=== PATIENT | female | born 1950 | race Caucasian/White ===

== ENCOUNTER 2019-12-26 08:40 | Outpatient (CLI) | payer BC, MEDICARE ==
[2019-12-26 17:18] LABS: BASOPHILS % (AUTO) 0.3 %; EOSINOPHILS # (AUTO) 0.3 10^3/uL (0.0-0.7); EOSINOPHILS % (AUTO) 4.3 %; HGB - HEMOGLOBIN 14.2 g/dL (12.0-16.0); LYMPHOCYTES # (AUTO) 2.7 10^3/uL (1.5-3.5); LYMPHOCYTES % (AUTO) 39.9 %; MEAN CORPUSCULAR HEMOGLOBIN 27.3 pg (27.0-31.0); MEAN CORPUSCULAR HGB CONC 31.3 g/dL (32.0-36.0); MEAN CORPUSCULAR VOLUME 87.1 fL (81.0-99.0); MEAN PLATELET VOLUME 10.1 fL (7.9-10.8); MONOCYTES # (AUTO) 0.4 10^3/uL (0.0-1.0); MONOCYTES % (AUTO) 5.4 %; NEUTROPHILS # (AUTO) 3.4 10^3/uL (1.5-6.6); PLT - PLATELET COUNT 293 10^3/uL (130-450); RED CELL DISTRIBUTION WIDTH 13.7 % (12.0-15.0); WHITE BLOOD COUNT 6.7 x10^3/uL (4.8-10.8)
[2019-12-26 18:03] LABS: HB2 TOTAL 14.8 g/dL; HEMOGLOBIN A1C 0.62 g/dL
[2019-12-26 18:04] LABS: ALBUMIN 4.3 g/dL (3.2-5.5); ALBUMIN/GLOBULIN RATIO 1.5 (1.0-2.2); ALKALINE PHOSPHATASE 66 IU/L (42-121); ALT ALANINE AMINOTRANSFERASE 11 IU/L (10-60); AST ASPARTATE AMINOTRANSFERASE 16 IU/L (10-42); BUN - BLOOD UREA NITROGEN 18 mg/dL (6-20); CALCIUM 9.3 mg/dL (8.5-10.3); CARBON DIOXIDE - CO2 29 mmol/L (21-32); CHLORIDE 101 mmol/L (101-111); CHOL/HDL RATIO 4.1 (<4.4); CHOLESTEROL 223 mg/dL; CREATININE 0.7 mg/dL (0.4-1.0); GFR - MDRD 83 (>89); GLUCOSE 101 mg/dL (70-100); HDL CHOLESTEROL 54 mg/dL; LDL CHOLESTEROL,CALCULATED 155 mg/dL; LDL/HDL RATIO 2.9 (<4.4); SODIUM 140 mmol/L (135-145); TOTAL PROTEIN 7.1 g/dL (6.7-8.2); VLDL CHOLESTEROL 14 mg/dL
[2019-12-27 14:25] LABS: HEPATITIS C ANTIBODY NON-REACTIVE (NON-REACTIVE)
== END 2019-12-26 08:41 | disposition home or self-care (01) ==
LOC: LAB.S 08:40
PROVIDERS: ATTEND Nurse Practitioner Family
DX: I10 Essential (primary) hypertension (principal); Z11.59 Encounter for screening for other viral diseases; Z13.1 Encounter for screening for diabetes mellitus
CPT/HCPCS: 36415; 80053; 80061; 83036; 83721; 85025; 86803

== ENCOUNTER 2021-04-03 08:13 | Outpatient (CLI) | payer MEDICARE ==
--- NOTE | 2021-04-03 17:41 | DEXA Report ---
PROCEDURE: Dexa Spine and/or Hip INDICATIONS: POSTMENOPAUSAL TECHNIQUE: Dual energy x-ray absorptiometry (DXA) was performed on a [employer]. Regions measur ed are the AP Spine, femoral neck, and if needed forearm. COMPARISON: None. FINDINGS: Lumbar Spine: Bone Mineral Density 1.315 g/cm/cm,T score 1.1, normal Left Hip: Bone Mineral Density 1.049 g/cm/cm,T score 0.3, normal Left Femoral Neck: Bone Mineral Density 0.882 g/cm/cm, T score -1.1, osteopenia (T score greater or equal to -1.0: NORMAL) (T score from -1.1 to -2.4: OSTEOPENIA) (T score less than or equal to -2.5 to: OSTEOPOROSIS) Impression: Osteopenia. Patients with diagnosis of osteoporosis or osteopenia should have regular bone mineral density assess ment. For those eligible for Medicare, routine testing is allowed once every 2 years. Testing frequ ency can be increased for patients who have rapidly progressing disease or for those who are receivin g medical therapy to restore bone mass. Reviewed by: Martha Calloway MD, PhD on 04/03/2021 5:40 PM PDT Approved by: Martha Calloway MD, PhD on 04/03/2021 5:40 PM PDT Station ID: [id number]
== END 2021-04-03 08:14 | disposition home or self-care (01) ==
LOC: DI 08:13
PROVIDERS: ATTEND Nurse Practitioner Family
DX: M85.89 Other specified disorders of bone density and structure, multiple sites (principal); Z78.0 Asymptomatic menopausal state

== ENCOUNTER 2021-11-20 06:43 | Outpatient (CLI) | payer MEDICARE ==
--- NOTE | 2021-11-20 08:59 | Ultrasound Report ---
PROCEDURE: Abdomen Complete INDICATIONS: ABD MASS TECHNIQUE: Real-time scanning was performed of the abdominal and retroperitoneal organs, with image documentatio n. COMPARISON: None. FINDINGS: Liver: Liver is normal in size and homogeneous in echotexture. Liver is diffusely echogenic Gallbladder: : There is sonographically normal. No gallstones. Gallbladder wall measures 1.3 mm. No p ericholecystic fluid. No sonographic Arguello's sign. Biliary ducts: Intrahepatic bile ducts are non-dilated. Extrahepatic bile duct caliber measures 6.0 mm. Normal is 6-7 mm or less in diameter, or 10 mm or less post-cholecystectomy. Pancreas: Visualized portions of the pancreas are sonographically normal. Spleen: Spleen is normal in size and homogeneous in echotexture. Kidneys: Kidneys are normal in size and echotexture. Right kidney measures 9.5 cm long; left kidney measures 11.8 cm long. No hydronephrosis or nephrolithiasis. No solid masses. Aorta: Visualized aorta is normal in caliber at less than 3 cm. Iliacs: Proximal common iliac arteries are normal in caliber at less than 2.5 cm. IVC: Intrahepatic inferior vena cava is patent. Miscellaneous: No free abdominal fluid. There is a fat-containing supraumbilical ventral midline her rivka measures approximately 2.4 x 2.0 cm. IMPRESSION: 1. Echogenic liver. Finding typically represents fatty infiltration, however finding is nonspecific a nd other etiologies including hepatic cirrhosis can produce a similar appearance. Recommend correlati on with clinical and laboratory data. 2. Mild right renal atrophy. 3. Small fat-containing supraumbilical ventral hernia. Reviewed by: Martha Calloway MD, PhD on 11/20/2021 8:58 AM PST Approved by: Martha Calloway MD, PhD on 11/20/2021 8:58 AM PST Station ID: [id number]
== END 2021-11-20 06:44 | disposition home or self-care (01) ==
LOC: DI 06:43
PROVIDERS: ATTEND Nurse Practitioner Family
DX: R19.00 Intra-abdominal and pelvic swelling, mass and lump, unspecified site (principal); R93.2 Abnormal findings on diagnostic imaging of liver and biliary tract; N26.1 Atrophy of kidney (terminal); K43.9 Ventral hernia without obstruction or gangrene

== ENCOUNTER 2022-03-10 08:58 | Outpatient (CLI) | payer MEDICARE ==
--- NOTE | 2022-03-18 16:43 | Mammography Report ---
BILATERAL DIGITAL SCREENING MAMMOGRAM 3D/2D: 03/10/2022 CLINICAL: Routine screening. No prior exams were available for comparison. There are scattered fibroglandular elements in both br easts. No significant masses, calcifications, or other findings are seen in either breast. IMPRESSION: NEGATIVE There is no mammographic evidence of malignancy. A 1 year screening mammogram is recommended. This exam was interpreted at Station ID: [id number]. NOTE: For mammograms, a report in lay terms will be sent to the patient. Approximately 15% of breast malignancies will not be visualized mammographically. In the management of a palpable breast mass, a negative mammogram must not discourage biopsy of a clinically suspicious lesion. Electronically Signed By: Kurtis posada/coby:03/18/2022 08:43:33 ACR BI-RADS Category 1: Negative 3341F PARENCHYMAL PATTERN: (A) - The breast(s) demonstrate(s) scattered fibroglandular densities. BI-RADS CATEGORY: (1) - 1 RECOMMENDATION: (ANNUAL) - Recommend routine annual screening mammography. [id number] 1 year screening LATERALITY: (B)
== END 2022-03-10 08:59 | disposition home or self-care (01) ==
LOC: DI.S 08:58
PROVIDERS: ATTEND Nurse Practitioner Family
DX: Z12.31 Encounter for screening mammogram for malignant neoplasm of breast (principal)

== ENCOUNTER 2022-06-16 12:30 | Outpatient (CLI) | payer MEDICARE ==
--- NOTE | 2022-06-16 16:02 | XRAY Report ---
PROCEDURE: Hip w/Pelvis 2-3V RT INDICATIONS: PAIN IN RIGHT HIP TECHNIQUE: AP pelvis with lateral view(s) of the right hip(s). COMPARISON: None. FINDINGS: Bones: No fractures or dislocations. Pelvic ring appears intact. No suspicious bony lesions. Mode rate bilateral degenerative hip joint space narrowing, right greater than left. Small paratracheal or osteophytes are present. No erosions. Soft tissues: The visualized bowel gas pattern is normal. Suspected calcific tendinitis is noted on the left. IMPRESSION: Bilateral hip osteoarthritis, right greater than left. Reviewed by: Lynnette Valiente MD on 06/16/2022 4:00 PM PDT Approved by: Lynnette Valiente MD on 06/16/2022 4:00 PM PDT Station ID: [id number]
== END 2022-06-16 12:31 | disposition home or self-care (01) ==
LOC: DI.S 12:30
PROVIDERS: ATTEND Nurse Practitioner Family
DX: M16.0 Bilateral primary osteoarthritis of hip (principal)

== ENCOUNTER 2023-08-07 19:04 | Emergency (ER) | payer MEDICARE ==
[2023-08-07 19:25] VITALS: BP 142/71; O2SAT 98
--- OUTSIDE RECORDS SUMMARY | 2023-08-07 19:30 | EXTERNAL MEDICAL SUMMARY RPT | Continuity of Care Document ---
Author Name Unknown Address [address] [place] [address] Phone Organization [facility] [address] [place] [address] Phone Care Team Providers Care Mounter Smoking Pipe Name Role Phone Unavailable Unavailable Unavailable Fly, Beilnda Unavailable Unavailable Allergies and Intolerances date description facility reaction severity (no date) No Known Drug Allergies [facility] (no sammie ction) (no severity) Medications date description facility 2023-08-04 00:00 Oxycodone [facility] 2023-08-04 00:00 Ibuprofen [facility] 2023-08-04 00:00 Aspirin [facility] 2023-08-03 00:00 Hydrochlorothiazide [facility] 2023-08-04 00:00 Acetaminophen [facility] 2023-08-03 00:00 Losartan [facility] Problems date description facility 2023-06-02 11:36 Urinary tract infection, site n ot specified [facility] 2023-06-02 11:36 Hyperglycemia, unspecified [facility] 2023-06-02 11:36 Encounter for preprocedural lab oratory examination [facility] 2023-06-02 11:36 Encounter for other preprocedur al examination [facility] 2023-08-03 10:49 Unilateral primary osteoarthrit is, [facility] 2023-08-03 11:09 Unilateral primary osteoarthrit is, [facility] 2023-08-03 14:52 Unilateral primary osteoarthrit is, [facility] 2023-08-03 15:12 Unilateral primary osteoarthrit is, [facility] 2023-08-04 08:49 Unilateral primary osteoarthrit is, [facility] 2023-08-04 11:16 Unilateral primary osteoarthrit , [facility] 2023-08-04 11:59 Unilateral primary osteoarthrit is, [facility] Procedures date description facility 2023-08-03 00:00 XR fluoro, less than 60 minutes [facility] 2023-08-03 00:00 Total Hip Arthroplasty/Anterior Approach (Right) [facility] 2023-08-03 00:00 Unilateral x-ray of hip, two views, with x-ray of pelvis [facility] Results/Labs test date facility value unit notes Social History date description facility 2023-08-03 00:00 Never smoked tobacco (finding) [facility] Vital Signs date measurement value units 2023-08-03 00:00 BMI 27.1 kg/m2 2023-08-03 00:00 height_metric 157.48 cm 2023-08-03 00:00 height_standard 62 in 2023-08-03 00:00 weight_metric 67.13 kg 2023-08-03 00:00 weight_standard 148 lb 2023-08-04 00:00 BP_diastolic 63 mmHg 2023-08-04 00:00 BP_systolic 129 mmHg 2023-08-04 00:00 heart_rate 74 /min 2023-08-04 00:00 o2_saturation 98 % 2023-08-04 00:00 respiration_rate 16 /min 2023-08-04 00:00 temperature_metric 35.44 C 2023-08-04 00:00 temperature_standard 95.8 F
--- NOTE | 2023-08-07 20:06 | ED Physician Documentation ---
History of Present Illness - Stated complaint Stated Complaint: RT LEG/HIP SWELLING - Chief complaint Chief Complaint: Ext Problem - History obtained from History obtained from: Patient - History of Present Illness Timing: Today Pain level max: 0 Pain level now: 0 - Additonal information Additional information: 73-year-old female is approximately 1 week status post right total hip replacement at [facility]. She feels that her leg swelling has continued to increase, contacted her orthopedist who recommended she go to the ER for evaluation for possible DVT. Nothing makes it better or worse. No chest pain. No shortness of breath. Review of Systems Constitutional: denies: Fever, Chills GI: denies: Vomiting, Diarrhea Skin: denies: Rash Musculoskeletal: denies: Neck pain, Back pain Neurologic: denies: Headache PD PAST MEDICAL HISTORY - Past Medical History Past Medical History: Yes Cardiovascular: Hypertension - Past Surgical History Past Surgical History: Yes General: Bowel surgery Ortho: Hip replacement - Allergies Allergies/Adverse Reactions: Allergies Allergy/AdvReac Type Severity Reaction Status Date / Time No Known Drug Allergies Allergy Verified 08/07/23 19:13 - Social History Does the pt smoke?: No Smoking Status: Never smoker Does the pt drink ETOH?: No Does the pt have substance abuse?: No - Immunizations Immunizations are current?: Yes PD ED PE NORMAL - Vitals Vital signs reviewed: Yes - General General: Alert and oriented X 3, No acute distress - HEENT HEENT: Moist mucous membranes - Derm Derm: Warm and dry - Extremities Extremities: Other (Right lower extremity mild diffuse swelling, no pitting edema. No calf tenderness or cord. Incision is clean, dry, intact. No signs of infection. Left leg is normal) - Neuro Neuro: Alert and oriented X 3 - Psych Psych: Normal mood, Normal affect Results - Vitals Vitals: Vital Signs - 24 hr 08/07/23 19:13 Temperature 36.6 C Heart Rate 90 Respiratory 18 Rate Blood Pressure 142/71 H O2 Saturation 98 Oxygen O2 Source Room air - Rads (name of study) Duplex ultrasound right lower extremity Relevant Findings:: Final report received, See rad report PD Medical Decision Making - ED course Complexity details: reviewed results, re-evaluated patient, considered differential, d/w patient ED course: No evidence of DVT on ultrasound. Appears to be normal postoperative swelling status post hip replacement. No indication of infection, septic joint. She will follow-up with her orthopedist for further care as scheduled. Patient counseled regarding signs and symptoms for which I believe and urgent re- evaluation would be necessary. Patient with good understanding of and agreement to plan and is comfortable going home at this time This document was made in part using voice recognition software. While efforts are made to proofread this document, sound alike and grammatical errors may occur. Departure - Departure Disposition: 01 Home, Self Care Clinical Impression: Leg edema, right Condition: Good Instructions: ED Leg Swelling Unilateral Follow-Up: ROSEANNA ARROYO ARNP [Primary Care Provider] - Comments: There is no evidence of blood clot on your ultrasound tonight. Please follow up with your surgeon for further care. Forms: PCP List Discharge Date/Time: 08/07/23 21:00
--- NOTE | 2023-08-07 21:42 | Ultrasound Report ---
PROCEDURE: Duplex Ext Veins Right INDICATIONS: RLE swelling s/p hip replacement TECHNIQUE: Real-time imaging, as well as color and pulse Doppler interrogation, were performed of the lower extr emity deep veins from the inguinal ligament to the popliteal fossa. Attempted visualization of the ca lf veins was performed. COMPARISON: None. FINDINGS: The deep veins are normally compressible, and free of intraluminal thrombus. Color and pu lse Doppler demonstrate normal phasic intraluminal flow. There is normal augmentation response to di stal compression maneuver. IMPRESSION: No deep venous thrombosis of the visualized lower extremity, right leg. Reviewed by: Feng Spence MD on 08/07/2023 9:40 PM PDT Approved by: Feng Spence MD on 08/07/2023 9:40 PM PDT Station ID: [id number]
== END 2023-08-07 21:00 | disposition home or self-care (01) ==
LOC: ED 19:04
DX: R60.0 Localized edema (principal); Z96.641 Presence of right artificial hip joint
CPT/HCPCS: 99283; 99284